=== PATIENT | female | born 1945 | race Caucasian/White ===

== ENCOUNTER → 2020-02-04 11:44 | Outpatient (BNVA) | payer MEDICARE, BC, SELFPAY | PROVIDERS: Family Provider Physician Assistant; Visit Provider Podiatrist Foot & Ankle Surgery | DX: M79.672 Pain in left foot (principal); M79.671 Pain in right foot; M19.072 Primary osteoarthritis, left ankle and foot; M19.071 Primary osteoarthritis, right ankle and foot | CPT/HCPCS: 73630 ==

== ENCOUNTER 2021-02-04 11:00 | Outpatient (CLI) | payer MEDICARE, BC, SELFPAY ==
--- NOTE | 2021-02-04 11:03 | MM_ITS ---
WS: [id number] BILATERAL SCREENING DIGITAL MAMMOGRAM WITH CAD HISTORY: SCREENING COMPARISON: 01/11/2019 Bilateral CC and MLO views submitted. Computer aided detection analyzed. Breast composition: The breasts are heterogeneously dense, which may obscure small masses. No suspici ous masses, microcalcifications or architectural distortion. Benign calcifications in each breast are stable. MM/[place] [id number] IMPRESSION: BI-RADS: 2-Benign FOLLOW UP: 1 Year Follow-up
== END 2021-02-04 11:01 | disposition home or self-care (01) ==
LOC: RADSHAW 11:01
PROVIDERS: PCP Physician Assistant; Visit Provider Physician Assistant
DX: Z12.31 Encounter for screening mammogram for malignant neoplasm of breast (principal)
CPT/HCPCS: 77067

== ENCOUNTER 2021-05-24 11:36 | Outpatient (CLI) | payer MEDICARE, BC, SELFPAY ==
--- NOTE | 2021-05-24 12:00 | CT_ITS ---
WS: [id number] CT ABDOMEN PELVIS TECHNIQUE: Contrast-enhanced CT of the abdomen and pelvis with coronal and sagittal reformatted image s. CLINICAL INFORMATION: LUQ ABDOMINAL PAIN COMPARISON: July 22, 2019 DLP: 842.[address] scans at [facility] use at least one of these dose optimization techniques: automated e xposure control; mA and/or kV adjustment per patient size (includes targeted exams where dose is matc hed to clinical indication); or iterative reconstruction. FINDINGS: Chronic elevation left hemidiaphragm similar to previous. Small esophageal hiatal hernia. Diffuse gas tric wall thickening in the fundus with gastric rugal thickening can be seen with gastritis. Lung bas es are well aerated. Diffuse fatty infiltration of the liver. Cholecystectomy clips. Normal portal ve in and splenic vein. Small 1.5 cm enhancing lesion in the liver dome better visualized today but like ly present in 2019 and appears stable, most likely small cavernous hemangioma. Cholecystectomy clips. Adrenal glands are normal. Normal renal parenchymal enhancement. No hydronephrosis. Normal caliber ab dominal aorta. Aortic calcification. Sigmoid diverticulosis. No evidence of acute diverticulitis. Grade 1 anterolisthesis L3 on L4. Pedicle screw fixation L4-S1 with interbody fusion grafts L4-L5 and L5-S1. Slight anterolisthesis L4 on L5. Lumbar fixation is new since 2019. CT/CT abdomen pelvis w con* [id number] IMPRESSION: 1. Marked elevation left hemidiaphragm unchanged since 2019 with small esophag eal hiatal hernia. 2. Diffuse thickening of the gastric fundus with Rugal thickening likely due t o gastritis. Recommend correlation for gastritis symptoms. 3. Diffuse fatty infiltration of the liver. 4. Prior cholecystectomy. 5. Small stable hemangioma in the dome of the liver measuring 1.5 CM. 6. Small bilateral renal cysts. Largest renal cyst lower pole right kidney enoch suring 1.5 CM. 7. Sigmoid diverticulosis. 8. Postoperative changes pedicle screw fixation L4-S1 with interbody fusion gr afts. Slight anterolisthesis L3 on L4 and L4 on L5.
[2021-05-24] MEDS: iohexol 300 mg/mL 50 mL Btl PO (13:01)
[2021-05-24 13:43] LABS: Blood Urea Nitrogen 10 mg/dL (8-23)
[2021-05-24] MEDS: iohexol 300 mg/mL 100 mL Btl IV (13:50)
== END 2021-05-24 11:37 | disposition home or self-care (01) ==
PROVIDERS: PCP Physician Assistant; Visit Provider Physician Assistant
DX: R10.12 Left upper quadrant pain (principal); K57.30 Diverticulosis of large intestine without perforation or abscess without bleeding; Q61.02 Congenital multiple renal cysts; D18.09 Hemangioma of other sites; Z90.49 Acquired absence of other specified parts of digestive tract; K76.0 Fatty (change of) liver, not elsewhere classified
CPT/HCPCS: 74177; 82565; 84520; Q9967

== ENCOUNTER 2021-09-02 14:42 | Inpatient (IN) | payer MEDICARE, BC, SELFPAY ==
[2021-09-02 14:49] VITALS: BP 162/87; PULSE 110; RESP 16; TEMP 36.4; O2SAT 96
--- NOTE | 2021-09-02 15:14 | CT_ITS ---
WS: [id number] CT ABDOMEN AND PELVIS WITH CONTRAST HISTORY: Abdominal pain and loss of appetite. Nausea and vomiting. TECHNIQUE: Imaging performed of the abdomen and pelvis with IV contrast. Single phase imaging of the abdomen. Coronal and sagittal reformats are submitted. All CT scans at [facility] use at [address] one of these dose optimization techniques: automated exposure control; mA and/or kV adjustment per patient size (includes targeted exams where dose is matched to clinical indication); or iterative re construction. IV CONTRAST: Omnipaque 300; 75 mL IV. Oral contrast: No DLP: 931.92 mGy.cm COMPARISON: 05/24/2021 Lower thorax: Subsegmental atelectasis at the LEFT lung base. Moderate elevation of the LEFT diaphrag m causing the atelectasis. Heart is being slightly displaced to the RIGHT of midline due to the eleva valeria diaphragm. No hiatal hernia. Liver/biliary system: Hepatic steatosis along the falciform ligament. Gallbladder: Status post cholecystectomy. Pancreas: Atrophied pancreas. Spleen: Normal size spleen. No mass or infarct. Adrenal glands: Normal. Right kidney: Cortical thinning with cysts and too small to characterize hypodensities. No obstructio n. Left kidney: Cortical thinning with calcifications and hypodensities which are too small to character ize. No obstruction. Aorta: Moderate atherosclerosis. Lymphadenopathy: None. Free fluid: Very small amount of free fluid in the pelvis. GI tract: Moderate distention of the stomach with air and fluid. The stomach is high riding into the LEFT thorax from the elevated diaphragm. There is marked dilatation of the small bowel with fluid and air. The distal most small bowel is not dilated. Within the sigmoid there are numerous diverticula w ith luminal narrowing. There is a small bowel loop within the RIGHT pelvis with wall thickening. Ther e is an adjacent area of wall thickening and sigmoid diverticulosis. The small bowel obstruction dist ally within the RIGHT pelvis may be secondary to diverticulitis. There are numerous foci of air deep within the pelvis associated with the sigmoid colon which all appear to be very closely associated wi th the wall the colon. Cannot confirm free air although some of these diverticula are very poorly cov ered by mucosa. There is a multiloculated collection deep within the pelvis in the presacral location which may be tethered loops of bowel. This collection measures approximately 3.4 x 7.1 cm. Different ial includes multiloculated abscess versus loops of GI tract clustered together. Abdominal wall: Unremarkable abdominal wall. No hernia. Pelvis: Well distended urinary bladder. Bones: Postsurgical changes in the lumbar spine from L4 to S1. CT/CT abdomen pelvis w con* [id number] IMPRESSION: 1. High-grade small bowel obstruction with the transition point in the distal small bowel deep within the RIGHT pelvis. There is associated diverticulosis wi th wall thickening in the sigmoid colon. I suspect small bowel obstruction may be secondary to a focal area of diverticulosis causing secondary obstruction of the small bowel in the RIGHT pelvis. There are numerous foci of air which I be lieve are still within contain diverticula. Tiny foci of free air cannot be com pletely excluded. There is also a complex collection in the presacral location which may be tethered loops of small bowel and colon. Cannot completely exclude abscess. 2. Moderate elevation of the LEFT hemidiaphragm with mild LEFT basilar atelect asis. 3. Prior cholecystectomy.
--- NOTE | 2021-09-02 15:15 | W.ED.ABDPA2 ---
HPI - Abdominal Pain General: Chief Complaint: Abdominal Pain Stated Complaint: RonaldoCremarita sent for an eval Time Seen by Provider: 09/02/21 15:01 History of Present Illness: HPI narrative: 76-year-old female presents emergency room with complaints of abdominal pain. She seen a week ago her primary care office started on antibiotics for diverticulitis she continues to have abdominal pain she has stopped the antibiotics because they are upsetting her stomach she denies any fever. Initially she had explosive-like diarrhea watery stools that as changed to a very thin loose stools. She denies any hematochezia. She is not had any vomiting but she has had some dry heaving and a lot of nausea. She denies any hematemesis. She denies any dysuria urgency or frequency. MD elicited complaint: abdominal pain Pertinent past history: diverticulitis Onset (ago): week(s) Pain Consistency: constant Location: Diffuse Severity: moderate Quality: cramping Radiation: none Exacerbating factors: eating and vomiting Relieving factors: nothing Associated Symptoms: Reports anorexia, bloating, change in bowel habits, change in stool character, GI cramping, diarrhea, nausea and poor appetite; Denies belching, chills, coffee ground emesis, constipation, dyspepsia, dysuria, excessive flatus, fever(s), heartburn, hematochezia, hematuria, hematemesis, fecal incontinence, loose stools, melena, syncope and vomiting Review of Systems Const: Denies: fever(s) or chills ENMT: Denies: throat pain, ear or mastoid pain, nasal discharge or nasal congestion Card: Denies: syncope Resp: Denies: dyspnea, productive cough or non-productive cough GI: Reports: nausea, diarrhea, bloating, GI cramping, change in bowel habits and change in stool character; Denies: vomiting, hematemesis, coffee ground emesis, heartburn, constipation, belching, excessive flatus, fecal incontinence, hematochezia or melena : Denies: dysuria or hematuria Skin/Breast: Denies: rash or pruritus PFS ED PFSH: Medical History Hammer toe of left foot Lupus Multifocal atrial tachycardia Onychodystrophy Osteomyelitis Surgical History H/O foot surgery H/O hand surgery H/O neck surgery H/O shoulder surgery H/O spinal fusion History of hysterectomy History of liver biopsy Hx of cholecystectomy Hx of tonsillectomy Status post Mohs surgery for squamous cell carcinoma of skin Family History Other Diabetes Heart disease Stroke Social History Smoking and tobacco status: never smoked Alcohol intake: never Lives independently: Yes Household members: spouse Marital status: Current occupational status: retired Physical Exam Const: COMMON NORMALS: no acute distress GENERAL APPEARANCE: cooperative and comfortable ORIENTATION/CONSCIOUSNESS: Yes awake, Yes oriented to person, Yes oriented to place and Yes oriented to time HENMT: COMMON NORMALS: normocephalic, atraumatic and hearing grossly normal bilaterally HEAD & SCALP: normocephalic and atraumatic Resp: COMMON NORMALS: normal respiratory effort, No retractions, No use of accessory muscles and clear to auscultation bilaterally AUSCULTATION: clear to auscultation bilaterally Cardio: COMMON NORMALS: regular rate, regular rhythm and No murmurs present (Cardio) RATE: regular rate RHYTHM: regular rhythm GI: COMMON NORMALS: Soft to palpation and No hepatosplenomegaly present AUSCULTATION: Yes normoactive bowel sounds PALPATION: Yes Soft to palpation, No Tenderness to palpation present (GI), No Guarding due to palpation present (GI) and Yes No hepatosplenomegaly present Extremity: COMMON NORMALS: normal to inspection, capillary refill normal, no clubbing, cyanosis or edema, no calf tenderness and no pedal edema Neuro: SENSORIUM/ORIENTATION: Yes oriented to person, Yes oriented to place and Yes oriented to time Skin: COMMON NORMALS: no rashes or lesions noted GENERAL SKIN EXAM: no rashes or lesions noted Course Vital Signs: Vital signs: Vital Signs Temperature 98.6 F 09/05/21 16:50 Pulse Rate 103 H 09/05/21 16:50 Respiratory Rate 18 09/05/21 16:50 Blood Pressure 145/82 09/05/21 16:50 Pulse Oximetry 97 09/05/21 16:50 MDM - Abdominal Pain MDM Narrative: Medical decision making narrative: Diverticulitis failing outpatient treatment. Unfortunately patient took the Bactrim but did not take the Flagyl because of previous negative experiences side effects with it. She has not developed what is potentially an abscess from sigmoid diverticulitis that appears to be causing a high-grade bowel obstruction will admit start IV antibiotics IV fluids consult surgery discussed with hospitalist orders written Lab Data: Labs: Lab Results 09/02/21 16:48 Lactic Acid 1.5 mmol/L mmol/L (0.5-2.2) Discharge Plan Discharge Patient Disposition: Admitted As Inpatient Admit Provider: Rohit Maharaj Clinical Impression: Diverticulitis, Small bowel obstruction Condition: Stable Discharge Diet: Advance as tolerated and As Directed Discharge Activity: Increase activity as tolerated Coding Level of Care Code ED Recreation Activities Coordinator for Ramiro Fwd Exam Detailed
[2021-09-02] MEDS: iohexol 300 mg/mL 100 mL Btl IV (15:40)
[2021-09-02] MEDS: sodium chloride 0.9% 1,000 ML 999 ML IV (16:30)
[2021-09-02 16:35] VITALS: BP 156/88; PULSE 109; RESP 16; O2SAT 97
[2021-09-02 17:12] LABS: Lactic Sepsis W/Reflex 1.5 mmol/L (0.5-2.2)
[2021-09-02] MEDS: metroNIDAZOLE IV 500 MG/100 ML PREMIX 100 MG IV (17:17)
[2021-09-02] MEDS: ciprofloxacin 400 MG/200 ML PREMIX 200 MG IV (17:18)
--- NOTE | 2021-09-02 17:56 | PM.HP ---
Providers/Chief Complaint Primary Care Provider: Lisa De La Rosa Chief Complaint: [place] sent for an eval History of Present Illness Pleasant 76-year-old lady with history of SLE, on leflunomide, occasional steroid for flares, MAT, multiple orthopedic surgeries, history of cholecystectomy, hysterectomy, among other surgeries, has been having abdominal discomfort of several weeks, and has been treated with oral antibiotics by her primary provider for diverticulitis, although has not improved, felt that antibiotics were making her symptoms worse, so stopped taking them on Monday. Said very poor oral intake, having bad heartburn, dry heaves, eructation. Previously diarrhea, no bowel movement since Monday. Not passing flatus. Intermittent abdominal pain that comes and goes like something is churning in the middle of her stomach. Denies fever. Denies hematochezia or melena. He reports otherwise has been in baseline state of health. Normally on flat ground she has no limited to ambulation, going uphill would have to stop to catch her breath on the way to the mailbox. Similarly going up a flight of stairs. Denies any chest pain or pressure. Denies any history of CAD, last stress test was in 1995. Denies any known history of congestive heart failure. Does have intermittent lower extremity edema, reports some shortness of breath sleeping entirely flat in bed, requires 2 pillows. Review of Systems Const: Reports: change in appetite; Denies: fever(s), chills or body aches Eyes: Denies: change in vision or eye redness ENMT: Denies: throat pain, oral sores or ear or mastoid pain Card: Denies: chest pain, edema, pre-syncope or dyspnea on exertion Resp: Denies: dyspnea, productive cough, change in phlegm color or hemoptysis GI: Reports: abdominal pain, nausea, heartburn, diarrhea, GI cramping, belching, change in bowel habits and other; Denies: hematochezia or melena : Denies: flank pain, urinary frequency or hematuria Musc: Denies: back pain, joint swelling or joint redness Skin/Breast: Denies: rash, sores or new lesions Neuro: Denies: headache(s), numbness in extremities, weakness in extremities, dizziness, confusion or seizure-like activity Endo: Denies: polyuria or polydipsia Robert/Lymph: Denies: easy bleeding or purpura All/Imm: Denies: urticaria, throat swelling or tongue swelling Medications/Allergies Home Medications Medication Instructions Recorded Confirmed Last Taken Type cyclobenzaprine 10 mg tablet 10 mg PO TID 11/18/19 08/24/21 Unknown History leflunomide 20 mg tablet 20 mg PO DAILY 11/18/19 08/24/21 Unknown History verapamil 240 mg 24 hr 240 mg PO DAILY 11/18/19 08/24/21 Unknown History capsule,extended release gabapentin 100 mg capsule 100 mg PO TID 08/04/21 08/24/21 Unknown History famotidine 40 mg PO DAILY 09/02/21 09/02/21 09/01/21 History metronidazole [Flagyl] 500 mg PO TID 09/02/21 09/02/21 Unknown History sulfamethoxazole-trimethoprim 1 tab PO Q12H 09/02/21 09/02/21 08/29/21 History [Bactrim DS] Allergies Allergy/AdvReac Type Severity Reaction Status Date / Time Penicillins Allergy Severe ALGY-Anaphy Verified 09/02/21 18:01 laxis felbamate Allergy Unknown Verified 09/02/21 14:52 PFSH Acute PFSH: Medical History Hammer toe of left foot Lupus Multifocal atrial tachycardia Onychodystrophy Osteomyelitis Surgical History H/O foot surgery H/O hand surgery H/O neck surgery H/O shoulder surgery H/O spinal fusion History of hysterectomy History of liver biopsy Hx of cholecystectomy Hx of tonsillectomy Status post Mohs surgery for squamous cell carcinoma of skin Family History Other Diabetes Heart disease Stroke Social History Smoking and tobacco status: never smoked Alcohol intake: never Substance/Drug Use: never Lives independently: Yes Household members: spouse Marital status: Current occupational status: retired Vitals/I&O/Wt Last Vital Signs Temp 97.5 F L 09/02/21 14:49 Pulse 109 H 09/02/21 16:35 Resp 16 09/02/21 16:35 BP 156/88 09/02/21 16:35 Pulse Ox 97 09/02/21 16:35 Physical Exam Narrative: EXAM NARRATIVE: Son at bedside Const: COMMON NORMALS: no acute distress and patient oriented x3 HENMT: COMMON NORMALS: oropharynx normal Neck/C-Spine: COMMON NORMALS: no JVD Resp: COMMON NORMALS: normal respiratory effort and clear to auscultation bilaterally AUSCULTATION: clear to auscultation bilaterally Cardio: COMMON NORMALS: no JVD, regular rhythm, S1 normal heart sound present, S2 normal heart sound present and No murmurs present (Cardio) RHYTHM: regular rhythm HEART SOUNDS: S1 normal heart sound present and S2 normal heart sound present GI: COMMON NORMALS: Normal to inspection, nondistended, normoactive bowel sounds present, Soft to palpation and non-tender (Reports earlier tenderness on palpation, not currently) PALPATION: Yes Soft to palpation Extremity: COMMON NORMALS: no joint enlargement GENERAL: Yes edema (1+) Neuro: COMMON NORMALS: patient oriented x3 and moves all extremities Skin: COMMON NORMALS: no rashes or lesions noted GENERAL SKIN EXAM: no rashes or lesions noted A&P Assessment and plan (1) Diverticulitis of large intestine with complication: Unresolving diverticulitis with outpatient treatment, initially on Bactrim, subsequently addition of Flagyl, but did not take Flagyl as previously had GI issues with it. Stop Bactrim on Monday. Unresolving symptoms, abdominal pain, diarrhea, last bowel movement on Monday, no BM since then. Not passing flatus. Eructation. CT abdomen pelvis with diverticulitis, sigmoid colon, wall thickening, high-grade small bowel obstruction possibly secondary to focal area of diverticulitis causing secondary obstruction in the right pelvis, numerous foci of free air likely contained within diverticuli, but free air cannot be completely excluded, complex collection in presacral patient possibly tethered loops of small bowel, but cannot exclude abscess. NGT has been requested in ER. Bowel rest. Gentle IV hydration. Received Cipro, Flagyl in ER. Continue. Collect CBC, chemistries. Stool studies, C. difficile, stool culture, ova and parasite panel. Surgical consultation. Status: Acute (2) SBO (small bowel obstruction): As above. Status: Acute (3) Dyspnea: Will obtain TTE given history of orthopnea, HOPSON, lower extremity swelling. Denies knowledge of being diagnosed with congestive heart failure. Denies known past history of CO or CAD. Status: Acute Additional A&P Information History of multifocal atrial tachycardia, takes 240 mg verapamil nightly. History of SLE: Normally takes leflunomide. Once in a while steroids if a flare. Penicillin allergy: Describes 40 years ago had lupus and throat swelling after penicillin shot. Discussed with her, she is not sure that she still has the allergy, she will pursue allergy testing with her PCP. Attestations Medical Necessity Statement*: Admission of over 2 midnights anticipated for assessment of management of complicated diverticulitis, small bowel obstruction. Coding Level of Care Code Acute Science Teacher for Ramiro Chavez Diagnoses Diverticulitis of large intestine with complication K57.32 SBO (small bowel obstruction) K56.609 Dyspnea R06.00
[2021-09-02] MEDS: cetacaine Spray 5 gm Can 1 SPRAY TOPICAL (18:57)
[2021-09-02 19:01] LABS: Basophils # 0.1 10^3/uL (0.0-0.1); Basophils % 0.5 %; Eosinophils % 0.3 %; Hematocrit 36.1 % (37.0-47.0); Hemoglobin 11.7 g/dL (11.5-15.3); Lymphocytes # 0.9 10^3/uL (0.8-4.8); Lymphocytes % 7.3 %; Mean Corpuscular HGB Conc 32.4 g/dL (30.0-36.0); Mean Corpuscular Hemoglobin 27.8 pg (28.0-34.0); Mean Corpuscular Volume 85.7 fl (81-99); Mean Platelet Volume 8.9 fL (7.4-10.4); Monocytes # 0.7 10^3/uL (0.2-0.9); Monocytes % 5.6 %; Neutrophils # 10.92 10^3/uL (1.8-7.7); Neutrophils % 85.7 %; Nucleated Red Blood Cells % 0 %; Platelet Count 439 10^3/cmm (130-400); Red Blood Count 4.21 10^6/uL (4.1-5.3); Red Cell Distribution Width 14.3 % (12.1-15.1); White Blood Count 12.7 10^3/uL (4.0-10.0)
--- NOTE | 2021-09-02 19:09 | XRR_ITS ---
PROCEDURE INFORMATION: Exam: XR Chest Exam date and time: 09/02/2021 7:09 PM Age: 76 years old Clinical indication: Device placement; Ng tube; Additional info: Post ng tube insertion TECHNIQUE: Imaging protocol: XR of the chest. Views: 1 view. Total images: 1 COMPARISON: CT abdomen pelvis w con* [id number] 09/02/2021 3:29 PM FINDINGS: Tubes, catheters and devices: Nasogastric tube coiled within the body of the stomach tip partially obscured by the the bra wire but believed approximate level of the gastric antrum. Lungs: No visible active interstitial or alveolar airspace disease. Pleural spaces: No visible pleural effusion. No pneumothorax. Heart/Mediastinum: Cardiac structures and configuration stable with calcified mitral annulus. Arteriosclerosis. Diaphragm: Chronic elevation left hemidiaphragm. Bones/joints: Stable. Lumbar inter pedicle screws. Other findings: Examination taken with patient's bra on. XR/XR chest 1V portable [id number] IMPRESSION: Nasogastric tube coiled within the body of the stomach tip partially obscured by the the bra wire but believed approximate level of the gastric antrum.
[2021-09-02 19:16] LABS: Alanine Aminotransferase 20 U/L (0-33); Albumin Level 3.3 g/dL (3.5-5.2); Alkaline Phosphatase 85 IU/L (35-105); Anion Gap 18.3 (5-19); Aspartate Amino Transferase 24 U/L (0-32); Blood Urea Nitrogen 17 mg/dL (8-23); Calcium 8.7 mg/dL (8.5-10.5); Carbon Dioxide 21 mmol/L (22-29); Chloride 92 mmol/L (98-107); Globulin 2.8 g/dL (1.3-4.6); Glucose 178 mg/dL (65-115); Osmolality Calculated 270 mOsm/kg (285-295); Potassium 4.3 mmol/L (3.5-5.1); Sodium 127 mmol/L (136-145); Total Bilirubin 0.5 mg/dL (0.15-1.2); Total Protein 6.1 g/dL (6.6-8.7)
[2021-09-02 20:00] VITALS: BP 147/84; PULSE 104; RESP 17; TEMP 36.7; O2SAT 93
--- NOTE | 2021-09-02 20:47 | PC.NURSE ---
i reported high pulse 104 to nurse
[2021-09-02] MEDS: heparin 5,000 unit/mL INJ 1 mL 5000 UNIT SUBCUT (21:18)
[2021-09-02] MEDS: D5-NS 0.45% + KCL 20 mEq 20 MEQ/1,000 ML BAG 125 MEQ IV (21:18)
[2021-09-02] MEDS: pantoprazole 40 mg SDV IVP (21:18)
[2021-09-03] VITALS: BP 100/68; PULSE 60; RESP 16; TEMP 36.7; O2SAT 97
[2021-09-03] MEDS: metroNIDAZOLE IV 500 MG/100 ML PREMIX 100 MG IV ×4 (00:29→23:59)
[2021-09-03 04:00] VITALS: BP 116/72; PULSE 62; RESP 17; TEMP 36.7; O2SAT 96
[2021-09-03] MEDS: heparin 5,000 unit/mL INJ 1 mL 5000 UNIT SUBCUT ×3 (04:31→20:19)
--- NOTE | 2021-09-03 05:01 | PC.NURSE ---
When patient was brought to floor, Nurse Tech transporting patient told Nurse Pt NG output in ER before transporting to floor was 450 mls.
[2021-09-03 05:40] LABS: Basophils # 0.1 10^3/uL (0.0-0.1); Basophils % 0.6 %; Eosinophils # 0.1 10^3/uL (0.0-0.8); Eosinophils % 0.4 %; Hematocrit 35.5 % (37.0-47.0); Hemoglobin 11.3 g/dL (11.5-15.3); Lymphocytes # 1.3 10^3/uL (0.8-4.8); Lymphocytes % 9.8 %; Mean Corpuscular HGB Conc 31.8 g/dL (30.0-36.0); Mean Corpuscular Volume 88.1 fl (81-99); Mean Platelet Volume 9.1 fL (7.4-10.4); Monocytes # 1.1 10^3/uL (0.2-0.9); Monocytes % 8.4 %; Neutrophils % 80.1 %; Nucleated Red Blood Cells % 0 %; Platelet Count 395 10^3/cmm (130-400); Red Blood Count 4.03 10^6/uL (4.1-5.3); Red Cell Distribution Width 14.4 % (12.1-15.1); White Blood Count 13.4 10^3/uL (4.0-10.0)
[2021-09-03 05:59] LABS: Alanine Aminotransferase 18 U/L (0-33); Albumin Level 3.3 g/dL (3.5-5.2); Alkaline Phosphatase 77 IU/L (35-105); Anion Gap 20.2 (5-19); Aspartate Amino Transferase 20 U/L (0-32); Blood Urea Nitrogen 15 mg/dL (8-23); Calcium 8.6 mg/dL (8.5-10.5); Carbon Dioxide 20 mmol/L (22-29); Chloride 97 mmol/L (98-107); Globulin 2.6 g/dL (1.3-4.6); Glucose 99 mg/dL (65-115); Osmolality Calculated 277 mOsm/kg (285-295); Potassium 4.2 mmol/L (3.5-5.1); Sodium 133 mmol/L (136-145); Total Bilirubin 0.4 mg/dL (0.15-1.2); Total Protein 5.9 g/dL (6.6-8.7)
[2021-09-03] MEDS: D5-NS 0.45% + KCL 20 mEq 20 MEQ/1,000 ML BAG 125 MEQ IV ×2 (06:13→14:31)
[2021-09-03 07:20] VITALS: RESP 16
[2021-09-03] MEDS: lanolin oint 7 gm 1 APPLIC TOPICAL (09:58)
--- NOTE | 2021-09-03 10:59 | PM.PN ---
Subjective Subjective: Interval history: Doing slightly better today. Has had a few more diarrheal bowel movements. Passing some flatus. No further severe abdominal pain. No appetite. Vitals/I&O/Wt Last Vital Signs Temp 98.0 F 09/03/21 04:00 Pulse 62 09/03/21 04:00 Resp 16 09/03/21 07:20 BP 116/72 09/03/21 04:00 Pulse Ox 96 09/03/21 04:00 09/02/21 09/03/21 09/03/21 22:59 06:59 14:59 Intake Total 1220 / 1220 100 / 100 Output Total 480 / 480 1410 / 1890 Balance -480 / -480 -190 / -670 100 / 100 Weight last 48 hrs Weight 58.332 kg Physical Exam Const: COMMON NORMALS: no acute distress, patient oriented x3 and alert ORIENTATION/CONSCIOUSNESS: Yes awake HENMT: COMMON NORMALS: oropharynx normal OTHER: NGT Neck/C-Spine: COMMON NORMALS: no JVD Resp: COMMON NORMALS: normal respiratory effort and clear to auscultation bilaterally AUSCULTATION: clear to auscultation bilaterally Cardio: COMMON NORMALS: no JVD, regular rhythm, S1 normal heart sound present, S2 normal heart sound present and No murmurs present (Cardio) RHYTHM: regular rhythm HEART SOUNDS: S1 normal heart sound present and S2 normal heart sound present GI: COMMON NORMALS: Normal to inspection, nondistended, normoactive bowel sounds present, Soft to palpation and non-tender (Reports earlier tenderness on palpation, not currently) PALPATION: Yes Soft to palpation Extremity: COMMON NORMALS: no joint enlargement GENERAL: Yes edema (Trace) Neuro: COMMON NORMALS: patient oriented x3 and moves all extremities SENSORIUM/ORIENTATION: Yes alert Skin: COMMON NORMALS: no rashes or lesions noted GENERAL SKIN EXAM: no rashes or lesions noted Data : 09/03/21 04:15 09/03/21 04:15 Micro: Microbiology 09/02/21 21:14 C.difficile Toxin B Gene (PCR) - Final Stool Routine Collection 09/02/21 18:38 Blood Culture - Preliminary Blood SPECIMEN COLLECTED 09/02/21 18:49 Blood Culture - Preliminary Blood SPECIMEN COLLECTED A&P Assessment and plan (1) Diverticulitis of large intestine with complication: Continue IV Cipro, Flagyl. She is tolerating antibiotics well. And oral vancomycin for C. difficile colitis. CT abdomen pelvis with diverticulitis, sigmoid colon, wall thickening, high-grade small bowel obstruction possibly secondary to focal area of diverticulitis causing secondary obstruction in the right pelvis, numerous foci of free air likely contained within diverticuli, but free air cannot be completely excluded, complex collection in presacral patient possibly tethered loops of small bowel, but cannot exclude abscess. Surgical consultation. Status: Acute (2) SBO (small bowel obstruction): NGT to LIS. Output 450 mL yesterday and 450 this morning. Symptomatically improving. Passing some flatus. No vomiting. Abdominal pain improved. Diarrheal bowel movement secondary to C. difficile colitis, tested positive today. Bowel rest. Gentle IV hydration. Status: Acute (3) C. difficile colitis: First episode. Oral vancomycin. Status: Acute (4) Dyspnea: Pending TTE given history of orthopnea, HOPSON, lower extremity swelling. Denies knowledge of being diagnosed with congestive heart failure. Denies known past history of NM or CAD. Status: Acute Additional A&P Information History of multifocal atrial tachycardia, takes 240 mg verapamil nightly. History of SLE: Normally takes leflunomide. Once in a while steroids if a flare. Penicillin allergy: Describes 40 years ago had lupus and throat swelling after penicillin shot. Discussed with her, she is not sure that she still has the allergy, she will pursue allergy testing with her PCP. Attestations Medical Necessity Statement*: Continue admission for assessment and management of complicated diverticulitis, C. difficile colitis, SBO. Coding Level of Care Code Acute Rn Clinical Documentation Specialist for Ramiro Chavez Diagnoses Diverticulitis of large intestine with complication K57.32 SBO (small bowel obstruction) K56.609 C. difficile colitis A04.72 Dyspnea R06.00
[2021-09-03 11:00] VITALS: BP 137/80; PULSE 94; RESP 16; TEMP 36.8; O2SAT 99
--- NOTE | 2021-09-03 11:25 | PC.CHAP ---
Pastoral Care Encounter/Spiritual Assessment Type of Contact [] Declined high speed warper tender visit [] Patient/Family/Request visit [] Outpatient visit [] Follow-up visit [] Physician referral [] Code/Alert [xx] Routine visit [] Staff referral [] Actively dying [] Patient sleeping [] Family support [] [] Out of room [] Palliative care [] [] Receiving care in room [] Pre-surgical visit [] Trauma [] Long length of stay [] ICU visit [] Other: Relational/Emotional Strength [xx] Patient feels connected with others/family/visitors/staff [] Distress [] Loneliness/isolation [] Abandonment Spirituality of Patient [xx] Person of Rosa [] Attends Rastafari of their Rosa [xx] Believes in Prayer [xx] Reads Bible or Jainism materials [] There are Spiritual issues to be addressed Biomedical Engineering Aide Interventions [xx] Prayer [xx] Active listening [xx] Non-anxious presence [] Spiritual/emotional support [] Crisis/trauma care [] Spiritual counseling [] Bereavement support [] Provided bereavement packet [xx] Provided Bible/devotional materials [] Provided toy/stuffed animal, coloring book to patient or family member [] Provided Communion [] Anointing/[place] [] Salvation [xx] Completed spiritual assessment [] Other: Impact on Illness or Injury [] Angry [] Fearful [] Anxious [] Often cries [] Exhaustion [] Unable to work xx] Unable to attend latter day [] Unable to walk/stand [] Unable to read [] Unable to drive [xx] Unable to eat/drink [] Unable to sleep [xx] Unable to be with family [] Patient intubated [] Other: Summary Patient stated her family have arrived at her home for [place] but she got sick and had to be admitted to hospital possibly for several days. She will miss their visits in her own home. Some have to fly out [place] evening and may not be able to visit her in the hospital. Her son and will be able to visit her, however. Time spent with patient 5 minutes
--- NOTE | 2021-09-03 14:40 | PM.CONSULT ---
Providers/Reason For Consult Consulting Physician/Specialty*: General Surgery Reason for Consult*: SBO, colitis/diverticulitis Attending Physician: Rohit Maharaj Primary Care Provider: Lisa De La Rosa History of Present Illness History of Present Illness Snehal Lazo is a 76 year old female who presented to the hospital with 4 days of worsening abdominal pain. She was being treated as an outpatient for diverticulitis but stopped taking her antibiotics just before these symptoms began 4 days ago due to nausea and emesis she assumed was from the antibiotics. The pain has now resolved. The pain was diffuse, sharp and constant. Pain did not radiate. Nothing seemed to make the pain better or worse. She was having multiple loose stools also. Denies fever/chills. Review of Systems General: Reports: 10 or more systems reviewed and unremarkable except in HPI and below Meds/Allergies Home Medications and Allergies Home Medications Medication Instructions Recorded Confirmed Last Taken Type cyclobenzaprine 10 mg tablet 10 mg PO TID PRN 11/18/19 09/02/21 Unknown History leflunomide 20 mg tablet 20 mg PO DAILY 11/18/19 09/02/21 09/01/21 History verapamil 240 mg 24 hr 240 mg PO DAILY 11/18/19 09/02/21 09/01/21 History capsule,extended release gabapentin 100 mg capsule 100 mg PO TID 08/04/21 09/02/21 09/01/21 History famotidine 40 mg PO DAILY 09/02/21 09/02/21 09/01/21 History metronidazole [Flagyl] 500 mg PO TID 09/02/21 09/02/21 Unknown History sulfamethoxazole-trimethoprim 1 tab PO Q12H 09/02/21 09/02/21 08/29/21 History [Bactrim DS] Allergies Allergy/AdvReac Type Severity Reaction Status Date / Time Penicillins Allergy Severe ALGY-Anaphy Verified 09/02/21 18:01 laxis felbamate Allergy Unknown Verified 09/02/21 14:52 Current Medications Current Medications Generic Name Dose Route Start Last Admin Trade Name Freq PRN Reason Stop Dose Admin Heparin Sodium (Porcine) 5,000 unit 09/02/21 19:58 09/03/21 11:17 Heparin 5,000 Unit/Ml Inj 1 Ml SUBCUT 5,000 unit Q8H WENDY Administration Potassium Chloride/Dextrose/Sod Cl 20 meq in 1,000 mls @ 125 mls/hr 09/02/21 19:58 09/03/21 14:31 D5-Ns 0.45% + Kcl 20 Meq IV 125 mls/hr .Q8H WENDY Administration Metronidazole 500 mg in 100 mls @ 100 mls/hr 09/03/21 00:30 09/03/21 08:41 Flagyl Iv IV Infused Q8H WENDY Infusion Protocol Lanolin 1 applic 09/03/21 09:51 09/03/21 09:58 Lanolin Oint 7 Gm TOPICAL 1 applic PRN PRN Administration DRYNESS Pantoprazole Sodium 40 mg 09/02/21 19:58 09/02/21 21:18 Pantoprazole 40 Mg Sdv IVP 40 mg Q24H WENDY Administration Vancomycin HCl 125 mg 09/03/21 13:00 09/03/21 14:31 Vancomycin 1,000 Mg Oral Meli (Btl) PO 1.25 ml QID WENDY Administration Verapamil HCl 240 mg 09/02/21 21:00 09/02/21 21:37 Verapamil 80 Mg Tablet PO 240 mg BEDTIME WENDY Administration PFSH Acute PFSH: Medical History Hammer toe of left foot Lupus Multifocal atrial tachycardia Onychodystrophy Osteomyelitis Surgical History H/O foot surgery H/O hand surgery H/O neck surgery H/O shoulder surgery H/O spinal fusion History of hysterectomy History of liver biopsy Hx of cholecystectomy Hx of tonsillectomy Status post Mohs surgery for squamous cell carcinoma of skin Family History Other Diabetes Heart disease Stroke Social History Smoking and tobacco status: never smoked Alcohol intake: never Substance/Drug Use: never Lives independently: Yes Household members: spouse Marital status: Current occupational status: retired Vitals/I&O/Wt Last Vital Signs Temp 98.3 F 09/03/21 11:00 Pulse 94 09/03/21 11:00 Resp 16 09/03/21 11:00 BP 137/80 09/03/21 11:00 Pulse Ox 99 09/03/21 11:00 09/02/21 09/03/21 09/03/21 22:59 06:59 14:59 Intake Total 200 / 200 1220 / 1420 1100 / 1100 Output Total 480 / 480 1410 / 1890 Balance -280 / -280 -190 / -470 1100 / 1100 Weight last 48 hrs Weight 128 lb 9.6 oz Physical Exam Const: COMMON NORMALS: no acute distress and patient oriented x3 HENMT: COMMON NORMALS: normocephalic and atraumatic HEAD & SCALP: normocephalic and atraumatic Eye: COMMON NORMALS: Equal, round and reactive pupils present and EOMs intact bilaterally PUPIL: Yes Equal, round and reactive pupils present Neck/C-Spine: COMMON NORMALS: no JVD Chest: COMMONS NORMALS: normal inspection of the chest and normal palpation of entire chest wall Resp: COMMON NORMALS: normal respiratory effort and No retractions Cardio: COMMON NORMALS: no JVD, regular rate and regular rhythm RATE: regular rate RHYTHM: regular rhythm GI: COMMON NORMALS: Normal to inspection, nondistended, normoactive bowel sounds present Extremity: COMMON NORMALS: normal to inspection and full ROM Neuro: COMMON NORMALS: patient oriented x3 and no sensory deficits noted Psych: COMMON NORMALS: mental status grossly normal and Normal thought process present THOUGHT PROCESS: Normal thought process present Data Micro: Micro: Microbiology 09/02/21 21:14 Enteric Pathogens (PCR) - Final Stool Routine Col lection 09/02/21 21:14 C.difficile Toxin B Gene (PCR) - Fin al Stool Routine Col lection 09/02/21 18:38 Blood Culture - Pr eliminary Blood [facility] 09/02/21 18:49 Blood Culture - Pr eliminary Blood [facility] A&P Assessment and plan (1) C. difficile colitis: I suspect her colitis and secondary SBO are from C. diff colitis. The presacral area of concern on the CT is most likely bowel and not abscess Patient was passing flatus this morning and had no abdominal pain or distention, so I removed the NGT and started a clear liquid diet Cont Abx No acute surgical intervention She will need a colonoscopy in 6 weeks Status: Acute (2) SBO (small bowel obstruction): likely secondary to above resolving NGT removed, clear liquid diet IVF aggressive electrolyte replacement Status: Acute Consult Attestations Medical Necessity Statement: needs treatment for C. 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 difficile colitis A04.72 SBO (small bowel obstruction) K56.609
[2021-09-03 15:22] VITALS: BP 147/86; PULSE 90; RESP 16; TEMP 36.4; O2SAT 97
[2021-09-03] MEDS: ciprofloxacin 400 MG/200 ML PREMIX 200 MG IV (17:10)
--- NOTE | 2021-09-03 19:58 | USCV_ITS ---
Snehal Lazo Age: 76 Gender: F : 1945 Exam Date: 09/03/2021 07:33 Ordering Phys: Rohit Maharaj MD Technologist: KAITLIN [place]am Location: [facility] [place] [facility] [place] Indication: long hx of multifocal tachycardia BP: 116 / 72 HR: 107 Rhythm: Sinus Technical Quality: Adequate MEASUREMENTS (Male / Female) Normal Values 2D ECHO LV Diastolic Diameter PLAX 2.3 cm 4.2 - 5.9 / 3.9 - 5.3 cm LV Systolic Diameter PLAX 1.6 cm IVS Diastolic Thickness 1.7 cm 0.6 - 1.0 / 0.6 - 0.9 cm IVS Systolic Thickness 1.5 cm LVPW Diastolic Thickness 1.1 cm 0.6 - 1.0 / 0.6 - 0.9 cm LVPW Systolic Thickness 1.6 cm LVOT Diameter 1.7 cm LV Ejection Fraction 2D Teich 58.5 % LV Ejection Fraction MOD 2C 64.5 % LV Ejection Fraction 2C AL 66.2 % LA Diameter 3.6 cm LA Width 4.5 cm LA Height 4.6 cm RA Width 3.6 cm RA Height 4.8 cm Aorta at Sinotubular Diameter 3.0 cm M-MODE Aortic Annulus Diameter 3.0 cm LA Ao Ratio MM 1.1 MV E Point Septal Separation 0.5 cm DOPPLER AV Peak Velocity 130.0 cm/s LVOT Peak Velocity 113.0 cm/s AV Area Cont Eq vti 2.1 cm squared AV Area Cont Eq pk 2.0 cm squared MV Peak Velocity 163.0 cm/s MV Area PHT 3.9 cm squared Mitral E to A Ratio 0.6 MV E' Velocity 53.0 cm/s Mitral E to MV E' Ratio 16.8 Mitral E to LV E' Lateral Ratio 21.9 Mitral E to LV E' Septal Ratio 13.8 TR Peak Velocity 312.0 cm/s TR Peak Gradient 38.9 mmHg TV Peak E Velocity 44.0 cm/s Right Atrial Pressure 10.0 mmHg Pulmonary Artery Systolic Pressu 48.9 mmHg PV Peak Velocity 84.0 cm/s RV Acceleration Time 0.1 s RV Ejection Time 0.4 s RV AcT/ET 0.3 FINDINGS Left Ventricle Normal left ventricular size, systolic function and increased wall thickness, with no regional wall motion abnormalities. Left ventricular ejection fraction is estimated at 70 %. Grade I diastolic dysfunction (abnormal relaxation filling pattern), normal to mildly elevated filling pressures. Right Ventricle Normal right ventricular size and systolic function. Right ventricular systolic pressure 48.9 mmHg. Right Atrium Normal right atrial size. Left Atrium Moderately increased left atrial size. Mitral Valve Severe mitral annular calcification. Thickened mitral valve. No mitral valve stenosis. Mild to moderate mitral valve regurgitation. Aortic Valve Aortic valve not well visualized. Thickened and calcified aortic valve. Aortic valve sclerosis without stenosis or regurgitation. Tricuspid Valve Structurally normal tricuspid valve. Moderate tricuspid valve regurgitation. Pulmonic Valve Pulmonic valve not well visualized. Pericardium No pericardial effusion. Aorta Normal size aortic root. Normal sized inferior vena cava. CONCLUSIONS 1. Normal left ventricular size, systolic function and increased wall thickness, with no regional wall motion abnormalities. Left ventricular ejection fraction is estimated at 70 %. Grade I diastolic dysfunction (abnormal relaxation filling pattern), normal to mildly elevated filling pressures. 2. Mild to moderate mitral valve regurgitation. 3. Moderate tricuspid valve regurgitation. 4. Pulmonary artery pressure estimated at 49 mm Hg. 5. No prior similar stidies to compare. Elaine Victoria MD (Electronically Signed) Final Date: 03 September 2021 12:51 S
[2021-09-03 20:00] VITALS: BP 146/79; PULSE 92; RESP 17; TEMP 36.4; O2SAT 92
[2021-09-03] MEDS: pantoprazole 40 mg SDV IVP (20:11)
[2021-09-04] VITALS: BP 106/63; PULSE 78; RESP 17; TEMP 36.5; O2SAT 94
[2021-09-04] MEDS: D5-NS 0.45% + KCL 20 mEq 20 MEQ/1,000 ML BAG 125 MEQ IV ×2 (02:32→14:56)
[2021-09-04] MEDS: ciprofloxacin 400 MG/200 ML PREMIX 200 MG IV ×2 (04:17→16:23)
[2021-09-04] MEDS: heparin 5,000 unit/mL INJ 1 mL 5000 UNIT SUBCUT ×3 (04:18→20:42)
[2021-09-04 06:12] LABS: Basophils # 0.1 10^3/uL (0.0-0.1); Basophils % 0.7 %; Eosinophils # 0.1 10^3/uL (0.0-0.8); Eosinophils % 0.5 %; Hematocrit 31.2 % (37.0-47.0); Lymphocytes % 10.6 %; Mean Corpuscular HGB Conc 32.1 g/dL (30.0-36.0); Mean Corpuscular Hemoglobin 27.9 pg (28.0-34.0); Mean Corpuscular Volume 87.2 fl (81-99); Mean Platelet Volume 9.4 fL (7.4-10.4); Monocytes # 0.8 10^3/uL (0.2-0.9); Monocytes % 8.7 %; Neutrophils % 78.6 %; Nucleated Red Blood Cells % 0 %; Platelet Count 350 10^3/cmm (130-400); Red Blood Count 3.58 10^6/uL (4.1-5.3); Red Cell Distribution Width 14.2 % (12.1-15.1); White Blood Count 9.6 10^3/uL (4.0-10.0)
[2021-09-04 06:29] LABS: Alanine Aminotransferase 12 U/L (0-33); Albumin Level 2.9 g/dL (3.5-5.2); Alkaline Phosphatase 66 IU/L (35-105); Anion Gap 12.4 (5-19); Aspartate Amino Transferase 11 U/L (0-32); Blood Urea Nitrogen 7 mg/dL (8-23); Calcium 7.8 mg/dL (8.5-10.5); Carbon Dioxide 21 mmol/L (22-29); Chloride 101 mmol/L (98-107); Globulin 2.4 g/dL (1.3-4.6); Glucose 112 mg/dL (65-115); Osmolality Calculated 269 mOsm/kg (285-295); Potassium 4.4 mmol/L (3.5-5.1); Sodium 130 mmol/L (136-145); Total Bilirubin 0.4 mg/dL (0.15-1.2); Total Protein 5.3 g/dL (6.6-8.7)
[2021-09-04 06:39] LABS: Magnesium 1.6 mg/dL (1.7-2.3)
[2021-09-04 07:52] VITALS: BP 109/68; PULSE 82; RESP 18; TEMP 36.8; O2SAT 99
[2021-09-04] MEDS: metroNIDAZOLE IV 500 MG/100 ML PREMIX 100 MG IV ×2 (08:46→17:40)
[2021-09-04 11:05] VITALS: BP 118/67; PULSE 87; RESP 18; TEMP 36.5; O2SAT 96
[2021-09-04] MEDS: magnesium sulfate premix 2 GM/50 ML PIGGYBACK IV (11:56)
--- NOTE | 2021-09-04 15:14 | PM.PN ---
Subjective Subjective: Interval history: Patient no longer has pain. Passing flatus. Still no BM Vitals/I&O/Wt Last Vital Signs Temp 97.7 F 09/04/21 11:05 Pulse 87 09/04/21 11:05 Resp 18 09/04/21 11:05 BP 118/67 09/04/21 11:05 Pulse Ox 96 09/04/21 11:05 09/04/21 09/04/21 09/04/21 06:59 14:59 22:59 Intake Total 620 / 3540 1949 Output Total 220 / 1180 Balance 400 / 2360 1949 Weight last 48 hrs Weight 135 lb 9.6 oz Weight 128 lb 9.6 oz Physical Exam Const: COMMON NORMALS: no acute distress and patient oriented x3 GI: COMMON NORMALS: Normal to inspection, nondistended, normoactive bowel sounds present Neuro: COMMON NORMALS: patient oriented x3 Data : 09/04/21 06:00 09/04/21 06:00 Micro: Microbiology 09/02/21 18:38 Blood Culture - Preliminary Blood NEGATIVE TO DATE 09/02/21 18:49 Blood Culture - Preliminary Blood NEGATIVE TO DATE 09/02/21 21:14 Enteric Pathogens (PCR) - Final Stool Routine Collection 09/02/21 21:14 C.difficile Toxin B Gene (PCR) - Final Stool Routine Collection A&P Assessment and plan (1) C. difficile colitis: I suspect her colitis and secondary SBO are from C. diff colitis. The presacral area of concern on the CT is most likely bowel and not abscess Patient was still passing flatus this morning and tolerating clear liquids Advance to full liquids Cont Abx course for 2 weeks to cover diverticulitis (recommend Clindamycin) No acute surgical intervention She will need a colonoscopy in 6 weeks Surgically cleared for discharge when tolerating soft diet and having BMs Status: Acute (2) SBO (small bowel obstruction): likely secondary to above resolving aggressive electrolyte replacement Status: Acute Attestations Medical Necessity Statement*: awaiting return of bowel function Coding Level of Care 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 difficile colitis A04.72 SBO (small bowel obstruction) K56.609
[2021-09-04 15:24] VITALS: BP 151/85; PULSE 96; RESP 18; TEMP 36.4; O2SAT 97
--- NOTE | 2021-09-04 16:38 | P.PN_ITS ---
Subjective Subjective: Interval history: She was feeling a little bit of nausea, but no vomiting. NGT was removed yesterday, started on clear liquids, so far tolerating, no recurrence of pain in the abdomen. Vitals/I&O/Wt Last Vital Signs Temp 97.6 F 09/04/21 15:24 Pulse 96 09/04/21 15:24 Resp 18 09/04/21 15:24 BP 151/85 09/04/21 15:24 Pulse Ox 97 09/04/21 15:24 09/04/21 09/04/21 09/04/21 06:59 14:59 22:59 Intake Total 620 / 3540 1949 Output Total 220 / 1180 Balance 400 / 2360 1949 Weight last 48 hrs Weight 61.507 kg Weight 58.332 kg Physical Exam Const: COMMON NORMALS: no acute distress, patient oriented x3 and alert ORIENTATION/CONSCIOUSNESS: Yes awake HENMT: COMMON NORMALS: oropharynx normal Neck/C-Spine: COMMON NORMALS: no JVD Resp: COMMON NORMALS: normal respiratory effort and clear to auscultation bilaterally AUSCULTATION: clear to auscultation bilaterally Cardio: COMMON NORMALS: no JVD, regular rhythm, S1 normal heart sound present, S2 normal heart sound present and No murmurs present (Cardio) RHYTHM: regular rhythm HEART SOUNDS: S1 normal heart sound present and S2 normal heart sound present GI: COMMON NORMALS: Normal to inspection, nondistended, normoactive bowel sounds present, Soft to palpation and non-tender PALPATION: Yes Soft to palpation Extremity: COMMON NORMALS: no joint enlargement and no pedal edema Neuro: COMMON NORMALS: patient oriented x3 and moves all extremities SENSORIUM/ORIENTATION: Yes alert Skin: COMMON NORMALS: no rashes or lesions noted GENERAL SKIN EXAM: no rashes or lesions noted Data : 09/04/21 06:00 09/04/21 06:00 Micro: Microbiology 09/02/21 18:38 Blood Culture - Preliminary Blood NEGATIVE TO DATE 09/02/21 18:49 Blood Culture - Preliminary Blood NEGATIVE TO DATE 09/02/21 21:14 Enteric Pathogens (PCR) - Final Stool Routine Collection A&P Assessment and plan (1) C. difficile colitis: First episode. Continue oral vancomycin. Status: Acute (2) Diverticulitis of large intestine with complication: Continue IV Cipro, Flagyl while in hospital, complete course likely with clindamycin given she is unable to tolerate p.o. Cipro or Flagyl and with penicillin allergy. CT abdomen pelvis with diverticulitis, sigmoid colon, wall thickening, high- grade small bowel obstruction possibly secondary to focal area of diverticulitis causing secondary obstruction in the right pelvis, numerous foci of free air likely contained within diverticuli, but free air cannot be completely excluded, complex collection in presacral patient possibly tethered loops of small bowel, but cannot exclude abscess. Follow-up colonoscopy in 6 weeks. Surgical consultation appreciated. Status: Acute (3) SBO (small bowel obstruction): So far appears improved and she is tolerating clear liquids. Surgical recommendations appreciated, continue liquids, advance to full today. Status: Acute (4) Dyspnea: Doing well on room air at least at rest. Recently with dyspnea on exertion, lower extremity edema, orthopnea. Echocardiogram obtained, EF 70%, grade 1 diastolic dysfunction. Mild to moderate mitral valve regurgitation. Moderate tricuspid valve regurgitation. Pulmonary artery pressure 49 mmHg. Would benefit from outpatient follow-up. Status: Acute Additional A&P Information History of multifocal atrial tachycardia, takes 240 mg verapamil nightly. History of SLE: Normally takes leflunomide. Once in a while steroids if a flare. Penicillin allergy: Describes 40 years ago had lupus and throat swelling after penicillin shot. Discussed with her, she is not sure that she still has the allergy, she will pursue allergy testing with her PCP. Attestations Medical Necessity Statement*: Continue admission for assessment of management of colitis, improving SBO. 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 difficile colitis A04.72 Diverticulitis of large intestine with complication K57.32 SBO (small bowel obstruction) K56.609 Dyspnea R06.00
[2021-09-04 19:36] VITALS: BP 174/80; PULSE 95; RESP 20; TEMP 36.7; O2SAT 92
[2021-09-04] MEDS: pantoprazole 40 mg SDV IVP (22:18)
[2021-09-04 23:53] VITALS: BP 109/63; PULSE 79; RESP 20; TEMP 36.6; O2SAT 94
[2021-09-05] MEDS: metroNIDAZOLE IV 500 MG/100 ML PREMIX 100 MG IV ×2 (00:16→07:27)
[2021-09-05 03:57] VITALS: BP 127/74; PULSE 86; RESP 19; TEMP 36.7; O2SAT 96
[2021-09-05] MEDS: ciprofloxacin 400 MG/200 ML PREMIX 200 MG IV (04:21)
[2021-09-05] MEDS: heparin 5,000 unit/mL INJ 1 mL 5000 UNIT SUBCUT ×2 (04:22→13:55)
[2021-09-05 05:38] LABS: Basophils # 0.1 10^3/uL (0.0-0.1); Basophils % 0.9 %; Eosinophils # 0.1 10^3/uL (0.0-0.8); Eosinophils % 0.7 %; Hematocrit 34.1 % (37.0-47.0); Hemoglobin 10.8 g/dL (11.5-15.3); Lymphocytes # 0.8 10^3/uL (0.8-4.8); Lymphocytes % 7.8 %; Mean Corpuscular HGB Conc 31.7 g/dL (30.0-36.0); Mean Corpuscular Hemoglobin 27.6 pg (28.0-34.0); Mean Corpuscular Volume 87.2 fl (81-99); Mean Platelet Volume 9.4 fL (7.4-10.4); Monocytes # 0.8 10^3/uL (0.2-0.9); Monocytes % 7.6 %; Neutrophils # 8.42 10^3/uL (1.8-7.7); Neutrophils % 82.4 %; Nucleated Red Blood Cells % 0 %; Platelet Count 363 10^3/cmm (130-400); Red Blood Count 3.91 10^6/uL (4.1-5.3); Red Cell Distribution Width 14.4 % (12.1-15.1); White Blood Count 10.2 10^3/uL (4.0-10.0)
[2021-09-05 06:19] LABS: Alanine Aminotransferase 13 U/L (0-33); Albumin Level 3.2 g/dL (3.5-5.2); Alkaline Phosphatase 74 IU/L (35-105); Anion Gap 16.3 (5-19); Aspartate Amino Transferase 12 U/L (0-32); Blood Urea Nitrogen 4 mg/dL (8-23); Calcium 8.3 mg/dL (8.5-10.5); Carbon Dioxide 20 mmol/L (22-29); Chloride 100 mmol/L (98-107); Glucose 131 mg/dL (65-115); Magnesium 1.9 mg/dL (1.7-2.3); Osmolality Calculated 273 mOsm/kg (285-295); Potassium 4.3 mmol/L (3.5-5.1); Sodium 132 mmol/L (136-145); Total Bilirubin 0.4 mg/dL (0.15-1.2); Total Protein 5.2 g/dL (6.6-8.7)
[2021-09-05 07:21] VITALS: BP 123/75; PULSE 87; RESP 18; TEMP 36.7; O2SAT 95
[2021-09-05] MEDS: D5-NS 0.45% + KCL 20 mEq 20 MEQ/1,000 ML BAG 125 MEQ IV (07:28)
[2021-09-05 07:46] VITALS: BP 123/75; PULSE 87; RESP 18; TEMP 36.7; O2SAT 95
--- NOTE | 2021-09-05 10:49 | PC.SOCIAL ---
IM follow up explained and copy provided. Patient verbalized no questions.
[2021-09-05 11:36] VITALS: BP 145/82; PULSE 103; RESP 18; TEMP 37; O2SAT 97
--- NOTE | 2021-09-05 13:50 | PM.PN ---
Subjective Subjective: Interval history: Patient no longer has pain. Passing flatus. Multiple loose BMs Vitals/I&O/Wt Last Vital Signs Temp 98.6 F 09/05/21 11:36 Pulse 103 H 09/05/21 11:36 Resp 18 09/05/21 11:36 BP 145/82 09/05/21 11:36 Pulse Ox 97 09/05/21 11:36 09/04/21 09/05/21 09/05/21 22:59 06:59 14:59 Intake Total 1660 / 3610 400 / 4010 100 / 100 Output Total 600 / 600 Balance 1660 / 3610 -200 / 3410 100 / 100 Weight last 48 hrs Weight 134 lb 3.2 oz Weight 135 lb 9.6 oz Physical Exam Const: COMMON NORMALS: no acute distress and patient oriented x3 GI: COMMON NORMALS: Normal to inspection, nondistended, normoactive bowel sounds present Neuro: COMMON NORMALS: patient oriented x3 Data : 09/05/21 05:28 09/05/21 05:28 A&P Assessment and plan (1) C. difficile colitis: I suspect her colitis and secondary SBO are from C. diff colitis. The presacral area of concern on the CT is most likely bowel and not abscess Patient was still passing flatus this morning and tolerating clear liquids Advance to soft diet Cont Abx course for 2 weeks to cover diverticulitis (recommend Clindamycin) No acute surgical intervention She will need a colonoscopy in 6 weeks Surgically cleared for discharge when tolerating soft diet Status: Acute (2) SBO (small bowel obstruction): likely secondary to above resolving aggressive electrolyte replacement Status: Acute Attestations Medical Necessity Statement*: patient to be discharged Coding Level of Care Code 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 difficile colitis A04.72 SBO (small bowel obstruction) K56.609
[2021-09-05] MEDS: loperamide liquid 1 mg/7.5 mL Btl 120 mL PO (15:28)
--- NOTE | 2021-09-05 16:43 | P.DS_ITS ---
Discharge Providers Date of Admission: 09/02/21 17:43 Date of Discharge: September 05, 2021 Attending Provider at Admission: Rohit Maharaj Attending Provider at Discharge: Rohit Maharaj Primary Care Provider: Lisa De La Rosa Diagnoses at Discharge Discharge Diagnosis (1) C. difficile colitis: Status: Acute (2) SBO (small bowel obstruction): Status: Acute Reason for Visit Reason for Visit: [place] sent for an eval Brief History: Pleasant 76-year-old lady with history of SLE, on leflunomide, occasional steroid for flares, MAT, multiple orthopedic surgeries, history of cholecystectomy, hysterectomy, among other surgeries, has been having abdominal discomfort of several weeks, and has been treated with oral antibiotics by her primary provider for diverticulitis, although has not improved, felt that antibiotics were making her symptoms worse, so stopped taking them last Monday. Has had very poor oral intake, having bad heartburn, dry heaves, eructation. Previously diarrhea, no bowel movement since Monday. Not passing flatus. Intermittent abdominal pain that comes and goes like something is churning in the middle of her stomach. Denies fever. Denies hematochezia or melena. She reports otherwise has been in baseline state of health. Normally on flat ground she has no limited to ambulation, going uphill would have to stop to catch her breath on the way to the mailbox. Similarly going up a flight of stairs. Denies any chest pain or pressure. Denies any history of CAD, last stress test was in 1995. Denies any known history of congestive heart failure. Does have intermittent lower extremity edema, reports some shortness of breath sleeping entirely flat in bed, requires 2 pillows. Hospital Course Hospital Course At presentation imaging with CT abdomen pelvis noted diverticulitis, sigmoid colon, with wall thickening, also noted high-grade small bowel obstruction possibly secondary to focal area of diverticulitis causing secondary obstruction in the right pelvis, numerous foci of free air likely contained within diverticula, but free air could not be excluded, complex collection in presacral location, possibly tethered loops of small bowel and colon, abscess cannot be excluded. She was maintained on bowel rest, with IV hydration, empiric antibiotic coverage with ciprofloxacin, Flagyl, was assessed by general surgery. Stool studies were collected. Tested positive for C. difficile, as discussed with her unclear whether this was the primary problem with community-acquired C. difficile, versus developing after had started on antibiotics. Her symptoms of eructation, abdominal pain, dry heaving improved with conservative measures, with NGT decompression, which was eventually clamped and removed. She has had flatus, diarrheal bowel movements. She has tolerated clear liquids, subsequently full liquids so far. Was started on oral vancomycin of which she will complete the course, as was given injection therapy will complete antibiotic course with clindamycin due to allergy or intolerance of the other agents (has tolerated ciprofloxacin and Flagyl by IV, but declines to transition to oral course given multiple episodes of intolerance in the past.). Not found to require acute surgical intervention on the hospital. Please refer for follow-up colonoscopy in 6 weeks. Please follow up recovery from C diff colitis. Extend vancomycin course if necessary. She requested for 1 dose of loperamide to help her get home. Understands risk of toxic megacolon and not to use it beyond that. Due to reported dyspnea on exertion, orthopnea, lower extremity edema while in the hospital additionally assessed by TTE with noted normal ejection fraction, grade 1 diastolic function, noted mild to moderate mitral valve regurgitation, moderate tricuspid valve regurgitation, pulmonary pressure estimated at 49 mmHg. She has done well subsequent hospital without recurrence of symptoms, however, if symptoms recur/persist, consider referral to specialist for follow-up on valvular heart disease, possible pulmonary hypertension. Consider referral for penicillin allergy skin test. Physical Exam Const: COMMON NORMALS: no acute distress and patient oriented x3 HENMT: COMMON NORMALS: oropharynx normal Neck/C-Spine: COMMON NORMALS: no JVD Resp: COMMON NORMALS: normal respiratory effort and clear to auscultation bilaterally AUSCULTATION: clear to auscultation bilaterally Cardio: COMMON NORMALS: no JVD, regular rhythm, S1 normal heart sound present, S2 normal heart sound present and No murmurs present (Cardio) RHYTHM: regular rhythm HEART SOUNDS: S1 normal heart sound present and S2 normal heart sound present GI: COMMON NORMALS: Normal to inspection, nondistended, normoactive bowel sounds present, Soft to palpation and non-tender PALPATION: Yes Soft to palpation Extremity: COMMON NORMALS: no joint enlargement and no pedal edema Neuro: COMMON NORMALS: patient oriented x3 and moves all extremities Skin: COMMON NORMALS: no rashes or lesions noted GENERAL SKIN EXAM: no rashes or lesions noted Discharge Data Data Completed and Pending: Completed Studies During Hospitalization Category Date Time Status CT abdomen pelvis w con* [id number] Stat Cat Scan 09/02/21 15:14 Completed XR chest 1V erik ble [id number] Stat Exams 09/02/21 19:09 Completed CV. echo complete * [id number] Routine Ultrasound 09/03/21 19:58 Completed Pending at discharge Category Date Time Status Blood Culture Sta t Lab 09/02/21 18:38 Results Complete Blood Co unt w/Auto AM LABS Lab 09/06/21 04:00 Ordered Comprehensive Met abolic Panel AM LA BS Lab 09/06/21 04:00 Ordered OVA and Parasites , Conc and PE Rout ine Lab 09/02/21 21:14 Received Labs from last 24 hours 09/05/21 09/05/21 05:28 05:28 WBC 10.2 H RBC 3.91 L Hgb 10.8 L Hct 34.1 L MCV 87.2 MCH 27.6 L MCHC 31.7 RDW 14.4 Plt Count 363 MPV 9.4 Neut % (Auto) 82.4 Lymph % (Auto) 7.8 [place] % (Auto) 7.6 Eos % (Auto) 0.7 Baso % (Auto) 0.9 Neut # (Auto) 8.42 H Lymph # (Auto) 0.8 [place] # (Auto) 0.8 Eos # (Auto) 0.1 Baso # (Auto) 0.1 Nucleated RBC % (a uto) 0 Nucleated RBCs # 0.0 Sodium 132 L Potassium 4.3 Chloride 100 Carbon Dioxide 20 L Anion Gap 16.3 BUN 4 L Creatinine 0.4 L GFR Calculation Not Reportable Glucose 131 H Calculated Osmolal ity 273 L Calcium 8.3 L Magnesium 1.9 Total Bilirubin 0.4 AST 12 ALT 13 Alkaline Phosphata se 74 Total Protein 5.2 L Albumin 3.2 L Globulin 2.0 Vitals: Last Vital Signs Temp 98.6 F 09/05/21 11:36 Pulse 103 H 09/05/21 11:36 Resp 18 09/05/21 11:36 BP 145/82 09/05/21 11:36 Pulse Ox 97 09/05/21 11:36 Discharge Plan Discharge Patient Disposition: Home Condition: Stable Prescriptions: New clindamycin HCl 150 mg capsule 150 mg PO Q6H 6 Days Qty: 24 RF: 0 vancomycin 125 mg capsule 125 mg PO Q6H 8 Days Qty: 32 RF: 0 Continued verapamil 240 mg capsule,ext rel. pellets 24 hr 240 mg PO DAILY RF: 0 cyclobenzaprine 10 mg tablet 10 mg PO TID PRN (Reason: Muscle Pain) RF: 0 gabapentin 100 mg capsule 100 mg PO TID RF: 0 famotidine 40 mg Tablet 40 mg PO DAILY RF: 0 Held leflunomide [Arava] 20 mg tablet 20 mg PO DAILY RF: 0 Hold Instructions: Resume on 09/15/21. Discontinued metronidazole [Flagyl] 500 mg Tablet 500 mg PO TID RF: 0 sulfamethoxazole-trimethoprim [Bactrim DS] 800-160 mg Tablet 1 tab PO Q12H RF: 0 Discharge Orders: Discharge Order (Routine); Ordered 09/05/21 Ordered By: Rohit Maharaj Referrals: Lisa De La Rosa PA [Primary Care Provider] - 4-7 days (Please call to make an appointment to be seen in 4-7 days.) Discharge Diet: Advance as tolerated and As Directed Discharge Activity: Increase activity as tolerated Patient Instructions: Clindamycin (By mouth), Vancomycin (By mouth), Diverticulitis (GEN), C. Diff (Clostridioides Difficile) Infection (GEN), Bowel Obstruction (GEN), Opioid Safety Activity Restrictions/Additional Instructions: Advance diet slowly as tolerating. Complete antibiotic course. Maintain contact isolation at home. Bleach any surfaces that may come in contact with stool. In case of worsening condition, worsening abdominal pain, fever, inability to tolerate oral intake, go to ER. Discuss with your primary doctor referral for colonoscopy in 6 weeks to exclude malignancy or other conditions as the cause of your symptoms. Discuss with your primary doctor regarding dyspnea on exertion, lower extremity swelling. Echocardiogram in the hospital showed normal ejection fraction, mild/grade 1 diastolic dysfunction. Also noted mild to moderate mitral valve regurgitation. Moderate tricuspid valve regurgitation. Noted pulmonary artery pressure at 49 mmHg. In case of persistent symptoms, discussed referral to cardiology for additional assessment of valvular heart disease, possible pulmona ry hypertension. Discussed with your doctor penicillin allergy testing. Discharge Attestations Time Spent in Discharge Care*: greater than 30 min Quality Metrics Clinical Quality Measures During this hospital stay, did patient experience: None Coding Level of Care Code Acute Chg FW DC note Diagnoses C. difficile colitis A04.72 SBO (small bowel obstruction) K56.558
[2021-09-05 16:50] VITALS: BP 145/82; PULSE 103; RESP 18; TEMP 37; O2SAT 97
== END 2021-09-05 16:50 | disposition home or self-care (01) | DRG 392 ==
LOC: ER 17:18 → MEDSURG 19:03
PROVIDERS: Admitting Provider Internal Medicine; Emergency Provider Family Medicine; PCP Physician Assistant; Visit Provider Internal Medicine
DX: K57.32 Diverticulitis of large intestine without perforation or abscess without bleeding (principal); K56.609 Unspecified intestinal obstruction, unspecified as to partial versus complete obstruction; I47.1 Supraventricular tachycardia; A04.72 Enterocolitis due to Clostridium difficile, not specified as recurrent; M32.9 Systemic lupus erythematosus, unspecified; Z98.1 Arthrodesis status; Z85.828 Personal history of other malignant neoplasm of skin; Z88.0 Allergy status to penicillin; I08.1 Rheumatic disorders of both mitral and tricuspid valves
CPT/HCPCS: 36415; 71045; 74177; 80053; 83605; 83735; 85025; 87040; 87177; 87209; 87493; 87506; 90471; 90686; 93306; 96365; 96367; 96372; 99285; C9113; J0744; J1644; J3370; J3475; J7030; Q9967; S0030

== ENCOUNTER → 2022-02-08 14:09 | Outpatient (BNVA) | payer MEDICARE, BC, SELFPAY | PROVIDERS: PCP Physician Assistant; Visit Provider Podiatrist Foot & Ankle Surgery | DX: L60.3 Nail dystrophy (principal); L84 Corns and callosities; M20.32 Hallux varus (acquired), left foot; I73.9 Peripheral vascular disease, unspecified; M32.9 Systemic lupus erythematosus, unspecified; M20.41 Other hammer toe(s) (acquired), right foot; M20.42 Other hammer toe(s) (acquired), left foot; M19.079 Primary osteoarthritis, unspecified ankle and foot; M79.672 Pain in left foot; M79.671 Pain in right foot | CPT/HCPCS: 11056; 11721 ==

== ENCOUNTER → 2022-04-04 11:16 | Outpatient (BNVA) | payer MEDICARE, BC, SELFPAY | PROVIDERS: PCP Physician Assistant; Visit Provider Podiatrist Foot & Ankle Surgery | DX: M79.672 Pain in left foot (principal); L60.3 Nail dystrophy; M20.32 Hallux varus (acquired), left foot; I73.9 Peripheral vascular disease, unspecified; L84 Corns and callosities; M32.9 Systemic lupus erythematosus, unspecified; M20.41 Other hammer toe(s) (acquired), right foot; M20.42 Other hammer toe(s) (acquired), left foot; M19.079 Primary osteoarthritis, unspecified ankle and foot; L97.521 Non-pressure chronic ulcer of other part of left foot limited to breakdown of skin | CPT/HCPCS: 99213 ==

== ENCOUNTER → 2022-06-14 10:58 | Outpatient (BNVA) | payer MEDICARE, BC, SELFPAY | PROVIDERS: PCP Physician Assistant; Visit Provider Podiatrist Foot & Ankle Surgery | DX: E11.8 Type 2 diabetes mellitus with unspecified complications (principal); L60.3 Nail dystrophy; M20.32 Hallux varus (acquired), left foot; I73.9 Peripheral vascular disease, unspecified; L84 Corns and callosities; M32.9 Systemic lupus erythematosus, unspecified; M19.079 Primary osteoarthritis, unspecified ankle and foot; L97.521 Non-pressure chronic ulcer of other part of left foot limited to breakdown of skin; M20.41 Other hammer toe(s) (acquired), right foot; E11.621 Type 2 diabetes mellitus with foot ulcer; M20.42 Other hammer toe(s) (acquired), left foot | CPT/HCPCS: 11055; 11721 ==

== ENCOUNTER → 2022-08-23 11:04 | Outpatient (BNVA) | payer MEDICARE, BC, SELFPAY | PROVIDERS: PCP Physician Assistant; Visit Provider Podiatrist Foot & Ankle Surgery | DX: I73.9 Peripheral vascular disease, unspecified (principal); E11.8 Type 2 diabetes mellitus with unspecified complications; L60.3 Nail dystrophy; M20.32 Hallux varus (acquired), left foot; L84 Corns and callosities; M32.9 Systemic lupus erythematosus, unspecified; L97.521 Non-pressure chronic ulcer of other part of left foot limited to breakdown of skin; M20.41 Other hammer toe(s) (acquired), right foot; M20.42 Other hammer toe(s) (acquired), left foot; E11.621 Type 2 diabetes mellitus with foot ulcer | CPT/HCPCS: 11056; 11721 ==

== ENCOUNTER → 2022-10-25 11:04 | Outpatient (BNVA) | payer MEDICARE, BC, SELFPAY | PROVIDERS: PCP Physician Assistant; Visit Provider Podiatrist Foot & Ankle Surgery | DX: I73.9 Peripheral vascular disease, unspecified (principal); L60.3 Nail dystrophy; M20.32 Hallux varus (acquired), left foot; L84 Corns and callosities; M32.9 Systemic lupus erythematosus, unspecified; M20.42 Other hammer toe(s) (acquired), left foot; M19.072 Primary osteoarthritis, left ankle and foot | CPT/HCPCS: 11055; 11721 ==

== ENCOUNTER → 2022-12-06 12:57 | Outpatient (BNVA) | payer MEDICARE, BC, SELFPAY | PROVIDERS: PCP Physician Assistant; Visit Provider Podiatrist Foot & Ankle Surgery | DX: I73.9 Peripheral vascular disease, unspecified (principal); L60.3 Nail dystrophy; M20.32 Hallux varus (acquired), left foot; L84 Corns and callosities; M32.9 Systemic lupus erythematosus, unspecified; M20.42 Other hammer toe(s) (acquired), left foot; M20.41 Other hammer toe(s) (acquired), right foot; M19.072 Primary osteoarthritis, left ankle and foot | CPT/HCPCS: 11721 ==

== ENCOUNTER → 2023-02-07 14:06 | Outpatient (BNVA) | payer MEDICARE, BC, SELFPAY | PROVIDERS: PCP Physician Assistant; Visit Provider Dermatology | DX: I73.9 Peripheral vascular disease, unspecified (principal); L60.8 Other nail disorders; L60.3 Nail dystrophy; L84 Corns and callosities; M20.32 Hallux varus (acquired), left foot; M32.9 Systemic lupus erythematosus, unspecified; M20.42 Other hammer toe(s) (acquired), left foot; M20.41 Other hammer toe(s) (acquired), right foot; M19.072 Primary osteoarthritis, left ankle and foot; L57.0 Actinic keratosis; L56.5 Disseminated superficial actinic porokeratosis (DSAP); L57.8 Other skin changes due to chronic exposure to nonionizing radiation | CPT/HCPCS: 11055; 11721; 17000; 17003; 99213 ==

== ENCOUNTER → 2023-04-11 13:06 | Outpatient (BNVA) | payer MEDICARE, BC, SELFPAY | PROVIDERS: PCP Physician Assistant; Visit Provider Podiatrist Foot & Ankle Surgery | DX: L60.8 Other nail disorders (principal); L60.3 Nail dystrophy; M20.32 Hallux varus (acquired), left foot; I73.9 Peripheral vascular disease, unspecified; L84 Corns and callosities; M32.9 Systemic lupus erythematosus, unspecified; M20.41 Other hammer toe(s) (acquired), right foot; M20.42 Other hammer toe(s) (acquired), left foot; M19.071 Primary osteoarthritis, right ankle and foot | CPT/HCPCS: 11055; 11721 ==

== ENCOUNTER → 2023-05-04 13:49 | Outpatient (BNVA) | payer MEDICARE, BC, SELFPAY | PROVIDERS: PCP Physician Assistant; Visit Provider Dermatology | DX: D48.5 Neoplasm of uncertain behavior of skin (principal); L57.0 Actinic keratosis; L56.5 Disseminated superficial actinic porokeratosis (DSAP); L82.1 Other seborrheic keratosis; Z85.828 Personal history of other malignant neoplasm of skin; L57.8 Other skin changes due to chronic exposure to nonionizing radiation; L81.4 Other melanin hyperpigmentation | CPT/HCPCS: 11102; 17004; 99214 ==

== ENCOUNTER → 2023-05-18 08:36 | Outpatient (BNVA) | payer MEDICARE, BC, SELFPAY | PROVIDERS: PCP Physician Assistant; Visit Provider Dermatology | DX: C44.622 Squamous cell carcinoma of skin of right upper limb, including shoulder (principal) | CPT/HCPCS: 12032; 17313; 17314 ==

== ENCOUNTER → 2023-06-01 10:58 | Outpatient (BNVA) | payer MEDICARE, BC, SELFPAY | PROVIDERS: PCP Physician Assistant; Visit Provider Dermatology | DX: L84 Corns and callosities (principal); L81.4 Other melanin hyperpigmentation; L57.0 Actinic keratosis | CPT/HCPCS: 17000; 99213 ==

== ENCOUNTER → 2023-06-13 13:39 | Outpatient (BNVA) | payer MEDICARE, BC, SELFPAY | PROVIDERS: PCP Physician Assistant; Visit Provider Podiatrist Foot & Ankle Surgery | DX: L60.8 Other nail disorders (principal); L60.3 Nail dystrophy; M20.32 Hallux varus (acquired), left foot; I73.9 Peripheral vascular disease, unspecified; L84 Corns and callosities; M32.9 Systemic lupus erythematosus, unspecified; M20.42 Other hammer toe(s) (acquired), left foot; M19.072 Primary osteoarthritis, left ankle and foot | CPT/HCPCS: 11056; 11721 ==

== ENCOUNTER → 2023-08-16 14:14 | Outpatient (BNVA) | payer MEDICARE, BC, SELFPAY | PROVIDERS: PCP Physician Assistant; Visit Provider Podiatrist Foot & Ankle Surgery | DX: L60.3 Nail dystrophy (principal); M20.32 Hallux varus (acquired), left foot; I73.9 Peripheral vascular disease, unspecified; L84 Corns and callosities; M32.9 Systemic lupus erythematosus, unspecified; M20.42 Other hammer toe(s) (acquired), left foot; M20.41 Other hammer toe(s) (acquired), right foot; M19.072 Primary osteoarthritis, left ankle and foot | CPT/HCPCS: 11056; 11721 ==

== ENCOUNTER → 2023-10-25 13:04 | Outpatient (BNVA) | payer MEDICARE, BC, SELFPAY | PROVIDERS: PCP Physician Assistant; Visit Provider Podiatrist Foot & Ankle Surgery | DX: L84 Corns and callosities (principal); L60.3 Nail dystrophy; M20.32 Hallux varus (acquired), left foot; I73.9 Peripheral vascular disease, unspecified; M32.9 Systemic lupus erythematosus, unspecified; M20.41 Other hammer toe(s) (acquired), right foot; M20.42 Other hammer toe(s) (acquired), left foot; M19.071 Primary osteoarthritis, right ankle and foot; M19.072 Primary osteoarthritis, left ankle and foot; L56.5 Disseminated superficial actinic porokeratosis (DSAP); Z85.828 Personal history of other malignant neoplasm of skin; L57.0 Actinic keratosis; L82.1 Other seborrheic keratosis; L57.8 Other skin changes due to chronic exposure to nonionizing radiation | CPT/HCPCS: 11056; 11721; 17000; 99213 ==

== ENCOUNTER → 2023-12-20 14:08 | Outpatient (BNVA) | payer MEDICARE, BC, SELFPAY | PROVIDERS: PCP Physician Assistant; Visit Provider Podiatrist Foot & Ankle Surgery | DX: L84 Corns and callosities (principal); L60.3 Nail dystrophy; M20.32 Hallux varus (acquired), left foot; I73.9 Peripheral vascular disease, unspecified; M32.9 Systemic lupus erythematosus, unspecified; M20.41 Other hammer toe(s) (acquired), right foot; M20.42 Other hammer toe(s) (acquired), left foot; M19.071 Primary osteoarthritis, right ankle and foot; M19.072 Primary osteoarthritis, left ankle and foot; L97.522 Non-pressure chronic ulcer of other part of left foot with fat layer exposed | CPT/HCPCS: 11056; 11721 ==

== ENCOUNTER → 2024-01-15 11:22 | Outpatient (BNVA) | payer MEDICARE, BC, SELFPAY | PROVIDERS: PCP Physician Assistant; Visit Provider Podiatrist Foot & Ankle Surgery | DX: I73.9 Peripheral vascular disease, unspecified (principal); L97.521 Non-pressure chronic ulcer of other part of left foot limited to breakdown of skin | CPT/HCPCS: 99213 ==

== ENCOUNTER → 2024-02-07 10:38 | Outpatient (BNVA) | payer MEDICARE, BC, SELFPAY | PROVIDERS: PCP Physician Assistant; Visit Provider Podiatrist Foot & Ankle Surgery | DX: I73.9 Peripheral vascular disease, unspecified (principal); L97.521 Non-pressure chronic ulcer of other part of left foot limited to breakdown of skin | CPT/HCPCS: 99213 ==

== ENCOUNTER 2024-02-15 10:40 | Outpatient (CLI) | payer MEDICARE, BC, SELFPAY ==
--- NOTE | 2024-02-15 10:40 | MM_ITS ---
WS: [id number] BILATERAL SCREENING DIGITAL TOMOSYNTHESIS MAMMOGRAM WITH CAD HISTORY: SCREENING COMPARISON: 02/04/2021, 01/11/2019 Bilateral CC and MLO views with tomosynthesis and synthetic mammography submitted. Computer aided det ection analyzed. Breast composition: There are scattered areas of fibroglandular density. No suspicious masses, microc alcifications or architectural distortion. Scattered calcifications in each breast. MM/[place] [id number] IMPRESSION: BI-RADS: 2-Benign FOLLOW UP: 1 Year Follow-up
== END 2024-02-15 10:41 | disposition home or self-care (01) ==
LOC: MOBLMAM 10:45
PROVIDERS: PCP Physician Assistant; Visit Provider Physician Assistant
DX: Z12.31 Encounter for screening mammogram for malignant neoplasm of breast (principal); R92.323 Mammographic fibroglandular density, bilateral breasts; R92.1 Mammographic calcification found on diagnostic imaging of breast
CPT/HCPCS: 77063; 77067

== ENCOUNTER → 2024-03-05 13:49 | Outpatient (BNVA) | payer MEDICARE, BC, SELFPAY | PROVIDERS: PCP Physician Assistant; Visit Provider Podiatrist Foot & Ankle Surgery | DX: Z51.89 Encounter for other specified aftercare (principal); I73.9 Peripheral vascular disease, unspecified; L97.521 Non-pressure chronic ulcer of other part of left foot limited to breakdown of skin | CPT/HCPCS: 99213 ==

== ENCOUNTER → 2024-04-25 13:40 | Outpatient (BNVA) | payer MEDICARE, BC, SELFPAY | PROVIDERS: PCP Physician Assistant; Visit Provider Podiatrist Foot & Ankle Surgery | DX: I73.9 Peripheral vascular disease, unspecified (principal); L97.521 Non-pressure chronic ulcer of other part of left foot limited to breakdown of skin; L60.3 Nail dystrophy; L84 Corns and callosities | CPT/HCPCS: 11056; 11721 ==

== ENCOUNTER → 2024-06-13 11:14 | Outpatient (BNVA) | payer MEDICARE, BC, SELFPAY | PROVIDERS: PCP Physician Assistant; Visit Provider Podiatrist Foot & Ankle Surgery | DX: I73.9 Peripheral vascular disease, unspecified (principal); L60.3 Nail dystrophy; L84 Corns and callosities | CPT/HCPCS: 11056; 11721 ==

== ENCOUNTER → 2024-08-21 11:22 | Outpatient (BNVA) | payer MEDICARE, BC, SELFPAY | PROVIDERS: PCP Physician Assistant; Visit Provider Podiatrist Foot & Ankle Surgery | DX: I73.9 Peripheral vascular disease, unspecified (principal); L60.3 Nail dystrophy; L84 Corns and callosities | CPT/HCPCS: 11056; 11721 ==

== ENCOUNTER → 2025-01-09 11:12 | Outpatient (BNVA) | payer MEDICARE, BC, SELFPAY | PROVIDERS: PCP Physician Assistant; Visit Provider Podiatrist Foot & Ankle Surgery | DX: I73.9 Peripheral vascular disease, unspecified (principal); L60.8 Other nail disorders; L84 Corns and callosities; L60.3 Nail dystrophy | CPT/HCPCS: 11056; 11721 ==

== ENCOUNTER → 2025-04-21 11:13 | Outpatient (BNVA) | payer MEDICARE, BC, SELFPAY | PROVIDERS: PCP Nurse Practitioner Family; Visit Provider Dermatology | DX: L56.5 Disseminated superficial actinic porokeratosis (DSAP) (principal); L82.1 Other seborrheic keratosis; L81.4 Other melanin hyperpigmentation; D18.01 Hemangioma of skin and subcutaneous tissue; I78.8 Other diseases of capillaries; Z08 Encounter for follow-up examination after completed treatment for malignant neoplasm; Z85.828 Personal history of other malignant neoplasm of skin; D48.5 Neoplasm of uncertain behavior of skin; L57.0 Actinic keratosis | CPT/HCPCS: 11102; 17000; 99213 ==

== ENCOUNTER → 2025-07-08 12:41 | Outpatient (BNVA) | payer MEDICARE, BC, SELFPAY | PROVIDERS: PCP Nurse Practitioner Family; Visit Provider Podiatrist Foot & Ankle Surgery | DX: E11.8 Type 2 diabetes mellitus with unspecified complications (principal); L60.3 Nail dystrophy; L84 Corns and callosities; L60.8 Other nail disorders; I73.9 Peripheral vascular disease, unspecified | CPT/HCPCS: 11056; 11721 ==

== ENCOUNTER → 2025-08-25 11:14 | Outpatient (BNVA) | payer MEDICARE, BC, SELFPAY | PROVIDERS: PCP Nurse Practitioner Family; Visit Provider Dermatology | DX: L56.5 Disseminated superficial actinic porokeratosis (DSAP) (principal); L57.0 Actinic keratosis; L82.1 Other seborrheic keratosis; Z08 Encounter for follow-up examination after completed treatment for malignant neoplasm; Z85.828 Personal history of other malignant neoplasm of skin | CPT/HCPCS: 17004; 99214 ==

== ENCOUNTER → 2025-09-09 14:26 | Outpatient (BNVA) | payer MEDICARE, BC, SELFPAY | PROVIDERS: PCP Nurse Practitioner Family; Visit Provider Podiatrist Foot & Ankle Surgery | DX: I73.9 Peripheral vascular disease, unspecified (principal); L60.3 Nail dystrophy; L84 Corns and callosities | CPT/HCPCS: 11056; 11721 ==